=== PATIENT | male | born 1990 | race Two or more races ===

== ENCOUNTER 2017-04-28 18:32 | Emergency (ER) | payer SELFPAY ==
[~2017-04-28] VITALS: Ht 172.7 cm; Wt 68.0 kg
--- NOTE | ~2017-04-28 | CT2 ---
[facility] A Service of [facility] RADIOLOGY TEXT RESULTS PATIENT: SHANNON SEBASTIAN LOCATION: [facility] : [birth year] UNIT #: [id number] AGE: [address]: Kenny Arteaga MD SEX: M ORDER DR: [id number] [facility]. [place], [place] [address] [id number] MR#: [id number] Acc #: [id number] NAME: SHANNON SEBASTIAN : 1990 SEX: M STUDY DATE/TIME: 04/28/2017 21:23 UNIT: [facility] ROOM: STUDY DESCRIPTION: CT Abd and Pelv W Cont Attending Physician: Willie Arteaga M.D. Ordering Physician: Willie Arteaga M.D. Primary Care Physician: No Primary Care Physician MEDICAL IMAGING REPORT This report is preliminary unless electronic signature is present EXAMINATION CT abdomen and pelvis with contrast. DATE 04/28/2017 HISTORY Diffuse abdominal pain today. Generalized abdominal tenderness. COMPARISON None. PROCEDURE 5 mm axial images from lung bases to lesser trochanters after intravenous and enteric contrast administration. Sagittal and coronal reformatted images were obtained. This CT exam was performed with one or more of the following radiation dose reduction techniques: automatic exposure control, adjustment of mA and/or kV according to patient size, and iterative reconstruction. FINDINGS Multiple small bowel loops in the mid to upper abdomen appear diffusely thickened and inflamed. More distal small bowel, and the colon, appear normal. No evidence of high-grade large or small bowel obstruction. No pneumatosis or free air or abscess is seen. Lung bases are clear. The liver, gallbladder, spleen, pancreas, adrenals and kidneys are normal. The appendix is normal. PELVIS FINDINGS: Urinary bladder, prostate and rectum are normal. IMPRESSION 1. Multiple small bowel loops predominately involving the duodenum and [facility] A Service of [facility] RADIOLOGY TEXT RESULTS PATIENT: SHANNON SEBASTIAN LOCATION: [facility] : [birth year] UNIT #: [id number] AGE: [address]: Kenny Arteaga MD SEX: M ORDER DR: jejunum in the mid upper abdomen appear thickened and inflamed suggesting features of infectious or inflammatory enteritis. The more distal small bowel and the colon appear unremarkable. 2. No evidence of high-grade bowel obstruction. 3. The appendix is normal. Dictated by... Chelsea Fonseca M.D. THIS IS AN ELECTRONICALLY VERIFIED REPORT Chelsea Fonseca M.D. at 04/29/2017 1:55 PM YAYO/anil TD: 04/29/2017 11:16 JOB #: [id number] MEDICAL IMAGING REPORT Page 1 of 1 COPY
[2017-04-28 19:41] LABS: BASOPHIL# 0.1 X10e3 (0-0.3); BASOPHIL% 0.9 % (0-2.5); EOSINOPHIL# 0.2 X10e3 (0-0.7); EOSINOPHIL% 2.7 % (0.0-7.0); HEMATOCRIT 42.5 % (38.0-50.0); HEMOGLOBIN 15.1 gm/dL (13.0-16.0); LYMPHOCYTE# 2.1 X10e3 (1.0-3.5); LYMPHOCYTE% 24.2 % (17.0-45.0); MEAN CELL VOLUME 85.7 FL (83-96); MEAN CORPUSCULAR HEMOGLOBIN 30.5 PG (28-34); MEAN CORPUSCULAR HGB CONC 35.6 g/dL (30-36); MONOCYTE# 0.6 X10e3 (0-1.0); MONOCYTE% 7.1 % (3.0-12.0); NEUTROPHIL# 5.7 X10e3 (1.5-7.1); NEUTROPHIL% 65.1 % (40-75); PLATELET COUNT 207 X10e3 (140-420); RED BLOOD COUNT 4.96 X10e (3.90-5.60); RED CELL DISTRIBUTION WIDTH 12.6 % (11.0-15.5); WHITE BLOOD COUNT 8.7 X10e3 (4.0-10.5)
[2017-04-28 19:48] LABS: DIFF IND NO
[2017-04-28 20:05] LABS: ALBUMIN SERUM 4.4 g/dL (3.5-5.0); BILIRUBIN, DIRECT 0.1 mg/dL (0.0-0.2); BILIRUBIN,INDIRECT 0.1 mg/dL (0.0-0.9); BILIRUBIN,TOTAL 0.2 mg/dL (0.2-2.0); BUN/CREATININE RATIO 14.44; CALCIUM SERUM 9.1 mg/dL (8.4-10.2); CREATININE SERUM 0.9 mg/dL (0.6-1.4); GLOM FILT RATE Estimated 117.5 mL/min (>60); POTASSIUM 3.5 mmol/L (3.5-5.1); PROTEIN TOTAL SERUM 7.3 g/dL (6.0-8.3)
== END 2017-04-28 22:14 | disposition home or self-care (01) ==
LOC: CED 18:32
DX: K52.9 Noninfective gastroenteritis and colitis, unspecified (principal)
CPT/HCPCS: 36415; 74177; 80048; 80076; 82150; 83690; 85025; 99284; Q9967